=== PATIENT | male | born 1955 | race Caucasian/White ===

== ENCOUNTER → 2023-07-28 06:33 | Day surgery (SDC) | payer MEDICARE, SELFPAY | LOC: GI 06:33 | PROVIDERS: ATTENDING PHYSICIAN Specialist | DX: Z12.11 Encounter for screening for malignant neoplasm of colon (principal); D12.3 Benign neoplasm of transverse colon; Z85.038 Personal history of other malignant neoplasm of large intestine; Z15.09 Genetic susceptibility to other malignant neoplasm; Z98.0 Intestinal bypass and anastomosis status | CPT/HCPCS: 45380; 88305 ==

== ENCOUNTER → 2024-07-05 07:00 | Outpatient (REF) | payer MEDICARE, SELFPAY | LOC: RAD 07:00 | PROVIDERS: ATTENDING PHYSICIAN Nurse Practitioner Adult Health | DX: M25.511 Pain in right shoulder (principal) | CPT/HCPCS: 73030 ==

== ENCOUNTER 2024-07-14 06:15 | Day surgery (SDC) | payer MEDICARE, SELFPAY | END 2024-07-14 11:25 | disposition home or self-care (01) | LOC: GI 06:15 | PROVIDERS: ATTENDING PHYSICIAN Specialist | DX: D12.5 Benign neoplasm of sigmoid colon (principal); K63.5 Polyp of colon; K57.30 Diverticulosis of large intestine without perforation or abscess without bleeding; K62.1 Rectal polyp; K21.01 Gastro-esophageal reflux disease with esophagitis, with bleeding; K44.9 Diaphragmatic hernia without obstruction or gangrene; K31.7 Polyp of stomach and duodenum; K92.2 Gastrointestinal hemorrhage, unspecified; Z15.09 Genetic susceptibility to other malignant neoplasm; Z98.0 Intestinal bypass and anastomosis status | CPT/HCPCS: 45385; 45380; 43251; 43239; 88305 ==